=== PATIENT | female | born 1940 | race Caucasian/White ===

== ENCOUNTER 2016-06-03 03:39 | Emergency (ER) | payer OTHER ==
[~2016-06-03] VITALS: Ht 147.3 cm; Wt 71.2 kg
[~2016-06-03 03:39] MED LIST: ALOG25TA PO; AMLO1TAB PO; APID SUBQ; ASPI81EC97 PO; ATOR20TA PO; CLOP75TA PO; GLIM2TAB PO; METO25TA3 PO; OMEP40EC1 PO
--- NOTE | 2016-06-03 03:39 | NUR ---
Patient was BIBA at this time.
[2016-06-03 03:43] VITALS: BP 150/70
--- NOTE | 2016-06-03 04:04 | NUR ---
Patient taken to bed 06 via gurney per EMS.
--- NOTE | 2016-06-03 04:04 | NUR ---
PATIENT PRESENTS TO ED WITH DIZZINESS AND N/V BIBA FROM HOME . EMS STATES THEY GAVE ZOFRAN 4MG ODT OBN FIELD . PT DENIES N/V/D; SKIN IS PINK/WARM/DRY; AAOX4 WITH EVEN AND STEADY GAIT; LUNGS CLEAR BL; HR EVEN AND REGULAR; PT DENIES ANY FEVER, CP, SOB, OR COUGH AT THIS TIME; PATIENT STATES PAIN OF 0/10 AT THIS TIME; VSS; PATIENT POSITIONED FOR COMFORT; HOB ELEVATED; BEDRAILS UP X2; BED DOWN. ER MD MADE AWARE OF PT STATUS.
[2016-06-03] MEDS ORDERED: METOCLOPRAMIDE 10 MG/2 ML INJ VIAL IVP ONE (04:25)
[2016-06-03] MEDS ORDERED: NACL 0.9% 1,000 ML IV ONE (04:25)
--- NOTE | 2016-06-03 04:27 | NUR ---
Dr. Jaime evaluating patient at bedside.
[2016-06-03 05:06] LABS: BASOPHILS # (AUTO) 0.1 K/uL (0.00-0.22); BASOPHILS % (AUTO) 0.7 % (0.0-2.0); EOSINOPHILS # (AUTO) 0.2 K/uL (0-0.4); EOSINOPHILS % (AUTO) 2.7 % (0.0-4.0); HEMATOCRIT 37.5 % (36-48); HEMOGLOBIN 12.4 g/dL (12.0-16.0); LYMPHOCYTES # (AUTO) 0.9 K/uL (2.5-16.5); LYMPHOCYTES % (AUTO) 12.7 % (20.5-51.1); MEAN CORPUSCULAR HEMOGLOBIN 27 pg (27-31); MEAN CORPUSCULAR HGB CONC 33 g/dL (33-37); MEAN CORPUSCULAR VOLUME 80 fL (80-94); MONOCYTES # (AUTO) 0.5 K/uL (0.8-1.0); MONOCYTES % (AUTO) 6.5 % (1.7-9.3); NEUTROPHILS # (AUTO) 5.5 K/uL (1.8-7.7); NEUTROPHILS % (AUTO) 77.4 % (42.2-75.2); PLATELET COUNT (AUTO) 150 K/uL (140-450); RED BLOOD CELL COUNT(AUTO) 4.68 MIL/uL (4.20-5.40); RED CELL DISTRIBUTION WIDTH 14.3 % (11.6-13.7); WHITE BLOOD COUNT (AUTO) 7.2 K/uL (4.8-10.8)
[2016-06-03 05:09] LABS: APPEARANCE,URINE CLEAR (CLEAR); BILIRUBIN,URINE NEGATIVE (NEGATIVE); BLOOD, URINE TRACE-L (NEGATIVE); COLOR,URINE YELLOW (YELLOW); LEUKOCYTE ESTERASE ,URINE 1+ (NEGATIVE); NITRITE, URINE NEGATIVE (NEGATIVE); PH,URINE 5.5 (5.0-9.0); PROTEIN,URINE NEGATIVE (NEGATIVE); UGLUCOSE NEGATIVE (NEGATIVE); UROBILINOGEN,URINE 0.2 EU/dL (0.2 - 1)
[2016-06-03 05:16] LABS: ANION GAP 13.1 (8-16); CALCIUM 8.1 mg/dL (8.5-10.1); CARBON DIOXIDE 27.2 mmol/L (21-32); CHLORIDE 105 mmol/L (98-107); CREATININE 1.5 mg/dL (0.6-1.3); GLUCOSE 166 mg/dL (74-106); POTASSIUM 4.3 mmol/L (3.5-5.1); SODIUM SERUM 141 mmol/L (136-145); UREA NITROGEN, BLOOD 38 mg/dL (7-18)
[2016-06-03 05:17] LABS: BACTERIA,URINE OCCASSIONAL /HPF (None Seen); RBC,URINE 0-5 (RARE) /HPF (0-5); SQUAMOUS EPITHELIAL CELL,UR 0-3 (FEW) /LPF (0-3 (FEW))
[2016-06-03 05:23] LABS: ALANINE AMINOTRANSFERASE 22 U/L (12-78); ALBUMIN 3.7 g/dL (3.4-5.0); ALKALINE PHOSPHATASE 137 U/L (46-116); ASPARTATE AMINOTRANSFERASE 15 U/L (15-37); MAGNESIUM 1.7 mg/dL (1.8-2.4); TOTAL BILIRUBIN 0.2 mg/dL (0.0-1.0); TOTAL PROTEIN, SERUM 7.3 g/dL (6.4-8.2)
[2016-06-03 06:14] VITALS: BP 137/63
--- NOTE | 2016-06-03 06:14 | NUR ---
Patient discharged with v/s stable. Written and verbal after care instructions given and explained. Patient alert, oriented and verbalized understanding of instructions. Ambulatory with steady gait. All questions addressed prior to discharge. ID band removed. Patient advised to follow up with PMD. Rx of Keflex and Zofran given. Patient educated on indication of medication including possible reaction and side effects. Opportunity to ask questions provided and answered.
== END 2016-06-03 06:14 | disposition home or self-care (01) ==
LOC: MED 03:39
DX: R42 Dizziness and giddiness (principal); E11.9 Type 2 diabetes mellitus without complications; E78.5 Hyperlipidemia, unspecified; I10 Essential (primary) hypertension; I25.10 Atherosclerotic heart disease of native coronary artery without angina pectoris
CPT/HCPCS: 36415; 80053; 81001; 83735; 84484; 85025; 87086; 93005; 96361; 96374; 99285; J2765; J7030

== ENCOUNTER 2016-06-29 03:10 | Emergency (ER) | payer OTHER ==
[~2016-06-29] VITALS: Ht 147.3 cm; Wt 84.8 kg
[2016-06-29 03:19] VITALS: BP 142/71
--- NOTE | 2016-06-29 03:30 | NUR ---
Note eddie in EDM - 06/29/16 at 0415 by MANNY 75 Y/O F W/C/O ABD PAIN, NV/D AND HEADACHES X TODAY. DENIES ANY FEVER, CHILLS OR SOB. NO S/S OF DISTRESS NOTED ER MADE AWARE.
--- NOTE | 2016-06-29 03:30 | NUR ---
75 Y/O F W/C/O ABD PAIN, NV/D, DIZZINESS AND HEADACHES X TODAY. DENIES ANY FEVER, CHILLS OR SOB. NO S/S OF DISTRESS NOTED ER MD MADE AWARE.
[2016-06-29] MEDS ORDERED: MECL-272 PO (03:37)
[2016-06-29] MEDS ORDERED: HUM SUBQ (03:45)
--- NOTE | 2016-06-29 03:53 | NUR ---
PT TAKEN TO CT
--- NOTE | 2016-06-29 04:10 | NUR ---
PT RETURN FROM CT
--- NOTE | 2016-06-29 04:14 | NUR ---
Dr. Schwartz evaluating patient at bedside.
[2016-06-29] MEDS ORDERED: NACL 0.9% 1,000 ML IV ONE (04:20)
[2016-06-29] MEDS ORDERED: MECLIZINE 25 MG TAB PO ONE (04:20)
[2016-06-29] MEDS ORDERED: ONDANSETRON 4 MG/2 ML VIAL IVP ONE (04:40)
[2016-06-29 04:48] LABS: BASOPHILS # (AUTO) 0.1 K/uL (0.00-0.22); BASOPHILS % (AUTO) 1.7 % (0.0-2.0); EOSINOPHILS # (AUTO) 0.2 K/uL (0-0.4); EOSINOPHILS % (AUTO) 2.9 % (0.0-4.0); HEMATOCRIT 40.4 % (36-48); HEMOGLOBIN 12.9 g/dL (12.0-16.0); LYMPHOCYTES % (AUTO) 12.4 % (20.5-51.1); MEAN CORPUSCULAR HEMOGLOBIN 26 pg (27-31); MEAN CORPUSCULAR HGB CONC 32 g/dL (33-37); MEAN CORPUSCULAR VOLUME 81 fL (80-94); MONOCYTES # (AUTO) 0.6 K/uL (0.8-1.0); MONOCYTES % (AUTO) 7.5 % (1.7-9.3); NEUTROPHILS # (AUTO) 6.6 K/uL (1.8-7.7); NEUTROPHILS % (AUTO) 75.5 % (42.2-75.2); PLATELET COUNT (AUTO) 154 K/uL (140-450); RED BLOOD CELL COUNT(AUTO) 4.99 MIL/uL (4.20-5.40); WHITE BLOOD COUNT (AUTO) 8.5 K/uL (4.8-10.8)
[2016-06-29 04:51] LABS: ALANINE AMINOTRANSFERASE 24 U/L (12-78); ALBUMIN 3.9 g/dL (3.4-5.0); ALKALINE PHOSPHATASE 117 U/L (46-116); ANION GAP 15.6 (8-16); ASPARTATE AMINOTRANSFERASE 24 U/L (15-37); CALCIUM 8.9 mg/dL (8.5-10.1); CARBON DIOXIDE 26.3 mmol/L (21-32); CHLORIDE 104 mmol/L (98-107); CREATININE 1.3 mg/dL (0.6-1.3); GLUCOSE 133 mg/dL (74-106); SODIUM SERUM 141 mmol/L (136-145); TOTAL BILIRUBIN 0.3 mg/dL (0.0-1.0); TOTAL PROTEIN, SERUM 7.7 g/dL (6.4-8.2); UREA NITROGEN, BLOOD 31 mg/dL (7-18)
[2016-06-29 04:53] LABS: POTASSIUM 4.9 mmol/L (3.5-5.1)
[2016-06-29 04:56] LABS: INR 1.1 (0.8-1.2); PARTIAL THROMBOPLASTIN TIME 24.2 secs (22-35.6); PROTHROMBIN TIME 10.4 secs (10.8-13.4)
--- NOTE | 2016-06-29 05:21 | NUR ---
0521 PER ER VERBAL ORDERS TO ADMINISTER MECLIZINE 50 MG BY PO IF TOLERATED BY PT. PT DENIES ANY NAUSEA AT THE MOMENT. MED ADMINISTERED. PT TOLERATED WELL.
[2016-06-29 06:54] VITALS: BP 136/67
--- NOTE | 2016-06-29 06:54 | NUR ---
Patient discharged with v/s stable. Written and verbal after care instructions given and explained. Patient alert, oriented and verbalized understanding of instructions. Wheel Chair Assisted with by caregiver. All questions addressed prior to discharge. ID band removed. Patient advised to follow up with PMD THIS WEEK OR RETURN TO ER IF CONDITION WORSENS. Rx of MECLIZINE given. Patient educated on indication of medication including possible reaction and side effects. Opportunity to ask questions provided and answered.
== END 2016-06-29 06:54 | disposition home or self-care (01) ==
LOC: MED 03:10
DX: H81.10 Benign paroxysmal vertigo, unspecified ear (principal); E11.9 Type 2 diabetes mellitus without complications; I25.2 Old myocardial infarction; I10 Essential (primary) hypertension; Z86.73 Personal history of transient ischemic attack (TIA), and cerebral infarction without residual deficits; Z79.82 Long term (current) use of aspirin; Z79.899 Other long term (current) drug therapy
CPT/HCPCS: 36415; 70450; 80053; 84484; 85025; 85610; 85730; 93005; 96361; 96374; 99285; J2405; J7030; J8597